=== PATIENT | male | born 1995 | race Hispanic/Latino ===

== ENCOUNTER 2016-05-09 16:30 | Inpatient (IN) | payer MEDICAID ==
[~2016-05-09] VITALS: Ht 160 cm; Wt 59.8 kg
[2016-05-09 16:44] VITALS: BP 127/75; PULSE 130; RESP 24; O2SAT 94
--- NOTE | 2016-05-09 17:59 | ED.REPORT ---
HPI-URI / Cough / Cold Date of Service May 09, 2016 ED Provider: Dr. Vikash Mckeon MD A 20 year old male presents to the ED complaining of a fever that began 2 days ago Patient has also been experiencing a productive cough, general malaise, nasal congestion, diaphoresis, mild sore throat, headache and myalgias. He has been unable to sleep because of his symptoms. Patient did not get the seasonal flu shot. He denies any previous medical conditions. Nursing Notes Stated Complaint: FEVER Chief Complaint: FLU/Cold Symptoms Nursing Notes Reviewed: Yes Allergies: Coded Allergies: No Known Allergies (Unverified , 05/09/16) Miscellaneous Medications ([no home meds]) General Time Seen by MD: 17:58 Chief Complaint Fever Hx Obtained From: Patient Arrived By: Walk-in Symptom Duration: Since onset Associated with: Reports: Body aches, Chills, Cough, Fever, Headache, Myalgia Pertinent Negative: Pt denies other symptoms Context: Immunization Status General: Unknown Recent Healthcare: No recent doctor visit, No recent hospitalization Past Medical History Past Medical History None reported. Past Surgical History Colonoscopy and Ileoscopy With Biopsies Smoking History Unknown if Ever Smoker Social History Other Social History: Good social support, Local resident Ambulatory Status Independent Review of Systems Constitutional: Reports: Chills, Fatigue, Fever, Malaise Ears / Nose / Throat: Reports: Nasal congestion, Sore throat Respiratory: Reports: Prod cough, clear, Denies: Shortness of breath GI: Denies: Nausea, Vomiting Neurologic: Reports: Headache, Denies: Change LOC Complete sys rev & neg: except as marked. Musculoskeletal: Reports: Myalgia Psychiatric: Reports: Insomnia (due to symptoms) Physical Exam Initial Vital Signs Vital Signs (First) Date Time Temp Pulse Resp B/P Pulse Ox O2 Delivery O2 Flow Rate FiO2 05/09/16 16:44 40.4 130 24 127/75 94 Room Air Initial VS: Reviewed Head / Eyes: Atraumatic, Normocephalic, PERRL Extremities: Vascular intact, Neuro intact, No swelling, No tenderness Neurologic: Alert, Oriented, Nonfocal Psychiatric: Mood/affect normal, Behavior normal, Normal thought content General/Constitutional: Awake, Alert ENT: Atraumatic, Airway patent Respiratory / Chest: Atraumatic, Breath sounds NL, Breath sounds = bilat Cardiovascular: Regular rhythm, Heart sounds NL Heart Rate / Rhythm: Positive: Tachycardia Abdomen: Atraumatic, Soft Skin: Atraumatic, Color NL Color / Condition: Positive: Diaphoresis present Interpretation & Diagnostics Lab Results Interpretation Result Diagram: 05/09/16191905/09/160 Test 05/09/16 19:20 White Blood Count 9.1th/mm3 (3.8-10.1) Red Blood Count 5.04mil/mm3 (4.40-5.80) Hemoglobin 15.0g/dL (13.8-17.2) Hematocrit 42.0% (41.0-50.0) Mean Corpuscular Volume 83.3fL (81-100) Mean Corpuscular Hemoglobin 29.8pg (27.0-35.0) Mean Corpuscular Hemoglobin Concent 35.7% (32.0-37.0) Red Cell Distribution Width 12.4% (12.3-15.4) Platelet Count 163bil/L (150-400) Neutrophils (%) (Auto) 79.0% (40-74) Lymphocytes (%) (Auto) 15.8% (14-46) Monocytes (%) (Auto) 3.7% (4-12) Eosinophils (%) (Auto) 0% (0-5) Basophils (%) (Auto) 0.8% (0-3) Potassium Level 3.1mEq/L (3.5-5.2) Chloride Level 82mEq/L (97-108) Carbon Dioxide Level 24mmol/L (18-29) Blood Urea Nitrogen 11mg/dL (6-20) Creatinine 0.73mg/dL (0.76-1.27) Estimat Glomerular Filtration Rate 143mL/min (>59) Glucose Level 116mg/dL (60-99) Lactic Acid Level 0.8mmol/L (0.4-2.0) Calcium Level 7.7mg/dL (8.5-10.1) Total Bilirubin 0.5mg/dL (0.0-1.2) Aspartate Amino Transf (AST/SGOT) 120U/L (0-50) Alanine Aminotransferase (ALT/SGPT) 42U/L (0-44) Alkaline Phosphatase 49U/L (25-150) Total Protein 6.5g/dL (6.4-8.4) Albumin 3.0g/dL (3.4-5.0) Procalcitonin 1.88ng/mL (See Comment) Hold Anguiano Top Tube Received (Received) Lab Results Interpretation: INFLUENZA: Negative X-Ray Chest Interpretation Chest Xray Interpretation: IMPRESSION: Dense right basilar pneumonia Dictated by: Riley Luna M.D. on 05/09/2016 at 20:14 Interpretation / Wet Read by: Interpret - Radiologist Re-Eval/Medical Decision Re-Evaluation/Progress : Time of Eval: 20:57 Patient Status: Condition improved Re-Evaluation/Progress Note: Patient is rechecked. He is informed of his flu results, X-ray results and diagnoses. All of the patient's questions are addressed. He understands and agrees with the treatment plan to admit. Consultation : Referral / Consult Name: Jack Joaquin MD Consulted With: Hospitalist Call Returned at: 21:17 Investigator Internal Revenue: Will see patient, Agrees with eval, Agrees with plan, Accepts admit Counseled Regarding: Diagnosis, Lab results, Need for admission Discharge & Departure Impression: Primary Impression: Pneumonia Pneumonia type: due to unspecified organism Laterality: bilateral Lung location: lower lobe of lung Qualified Code: J18.9 - Pneumonia, unspecified organism Additional Impressions: Hyponatremia Sepsis Sepsis type: sepsis due to unspecified organism Qualified Code: A41.9 - Sepsis, unspecified organism Disposition: ADMITTED TO HOSPITAL Discharge Condition All VS Reviewed: Yes Condition: Stable Referrals: [facility] (PCP) [facility] Scribe Attestation Portions of this note were transcribed by Tarik Duran. I, Dr. Mckeon personally performed the history, physical exam and medical decision-making; I reviewed and confirmed the accuracy of the information in the transcribed note. Signed by: Drew Jackson, 05/09/16 2130. Vikash Mckeon DO May 09, 2016 17:58 TARKI DURAN May 09, 2016 18:59
[2016-05-09] MEDS ORDERED: 0.9% Sodium Chloride 1,000 ML IV SCH ×2 (19:05→21:00)
[2016-05-09 19:26] LABS: EOSINOPHILS % (AUTO) 0 % (0-5); Mean Corpuscular Hemoglobin 29.8 pg (27.0-35.0)
[2016-05-09 19:27] VITALS: BP 111/67; PULSE 101; RESP 19; O2SAT 98
[2016-05-09 19:35] LABS: BASOPHILS % (AUTO) 0.8 % (0-3); MONOCYTES % (AUTO) 3.7 % (4-12); Mean Corpuscular Volume 83.3 fL (81-100); Platelet Count 163 bil/L (150-400)
--- NOTE | 2016-05-09 20:17 | DRSVH ---
PROCEDURE: X-RAY CHEST, TWO VIEWS ([id number]) INDICATIONS: cough, sepsis TECHNIQUE: 2 views of the chest were acquired. COMPARISON: None. FINDINGS: Surgical changes and devices: None. Lungs and pleura: No pleural effusions or pneumothorax. Dense right basilar pneumonia Mediastinum: Mediastinal contours are normal. Heart size is normal. Bones and chest wall: No suspicious bony abnormalities. Soft tissues appear unremarkable. IMPRESSION: Dense right basilar pneumonia Dictated by: Riley Luna M.D. on 05/09/2016 at 20:14 Approved by: Riley Luna M.D. on 05/09/2016 at 20:15
[2016-05-09] MEDS ORDERED: Azithromycin Inj 500 MG in Dextrose 5% w/Vial Mate 250 ML IV ONE (21:00)
[2016-05-09] MEDS ORDERED: cefTRIAXone Inj 2 GM in IV Premix 1 EACH IV ONE (21:00)
[2016-05-09] MEDS ORDERED: cefTRIAXone Inj 2,000 MG in Dextrose 5% Minibag Plus 50 ML IV SCH (21:13)
[2016-05-09] MEDS ORDERED: Polyethylene Glycol (PEG) 17 Gm Powder PO PRN (21:50)
[2016-05-09] MEDS ORDERED: Alum-Mag Hydrox-Simeth 30 mL Suspension PO PRN (21:50)
[2016-05-09 22:02] VITALS: BP 104/58; PULSE 89; RESP 19; O2SAT 95
[2016-05-09 22:22] VITALS: BP 103/66; PULSE 93; RESP 19; O2SAT 96
[2016-05-09] MEDS ORDERED: no home meds (22:27)
[2016-05-09] MEDS ORDERED: Albuterol 2.5 mg/3 mL Inhalation Solution NEB PRN (22:35)
--- NOTE | 2016-05-09 22:39 | PCM.HPMED ---
Subjective Date of Service May 09, 2016 Primary Provider: Admitting Physician: Jack Joaquin MD Primary Care Physician: Chato Attending Physician: Jack Joaquin MD Chief Complaint: Fever, SOB, fatigue History of Present Illness: Patient is a 20 year old male with no past medical history. He presented to [facility] on 05/09/16 with his father and his brother. History taken from the family as patient is quite somnolent. Symptoms reported include fever, cough, sputum production, chest pain, shortness of breath, sore throat, myalgias, laryngitis and fatigue. No one else at home has been sick. The patient has been able to eat and drink some. He has been especially good about drinking tea as it was soothing to his throat. In the ED patient temp 40.4, heart rate 130, respiratory rate 24, blood pressure 127/75, and O2 saturation 94% on room air. Labs remarkable for sodium 120, potassium 3.1, chloride 82. IV fluids started. IV antibiotics given. Patient to be admitted for further management of what appears to be sepsis with community acquired pneumonia. Review of Systems: A comprehensive review of systems was conducted with the patient and found to be negative except as above in the history of present illness. Allergies Coded Allergies: No Known Allergies (Unverified , 05/09/16) Home Medications None reported PMH None reported Surgical History None reported Family History No sick contacts No reported family history of lung disease Social History Hx Alcohol Use: Yes (socially) Hx Substance Use: No Hx Tobacco Use: No Smoking Status: Never Smoker Living Arrangement: with Family Exam Vital Signs Vital Sign - Last Date Time Temp Pulse Resp B/P Pulse Ox O2 Delivery O2 Flow Rate FiO2 05/09/16 22:02 37.4 89 19 104/58 95 Room Air Exam Mild distress, patient somnolent and difficult to arouse Head atraumatic, normocephalic Could not observe oropharynx as patient could not awaken enough to participate in exam; lips dry and cracked No cervical lymphadenopathy noted but difficult to assess as patient laying at strange angle in bed, neck supple, nontender Cardiac tones regular rate and rhythm with no murmur appreciated Lungs with coarse breath sounds noted at the bases (R>L), scattered wheezes heard throughout the lungs crooks No abdominal tenderness, non-distended, normoactive bowel tones, soft Guerra absent Radial pulses normal and equivalent bilaterally, dorsalis pedis pulses normal and equivalent bilaterally No cyanosis, clubbing or edema No ulcerations/open wounds Neuro status could not be assessed as patient could not awaken enough to participate in exam Lab and Diagnostics Result Diagram: 05/09/16191905/09/161919 X-Rays, CTs and MRIs Chest x-ray IMPRESSION: Dense right basilar pneumonia Dictated by: Riley Luna M.D. on 05/09/2016 at 20:14 Assessment & Plan Patient is a 20 year old male with no past medical history. He presented to [facility] on 05/09/16 with his father and his brother. Five days of fever, cough, sputum, SOB, chest pain, myalgias, and fatigue with symptoms worsening. Chest x -ray shows right basilar pneumonia. IV fluids and antibiotics started in ED. Admitted for management of sepsis and pneumonia. 1. Severe sepsis, acute, present on admission. - Criteria met: Fever (40.4), tachycardia (130), tachypnea (24), encephalopathy , pulmonary source. - Procalcitonin ordered and pending. - Will treat the underlying source. Antibiotics as below in #2. - 2L IV NS given in ED. IV LR at 100 ml/hr. - Continue to monitor CBC, lactic acid in AM. 2. Community acquired pneumonia, acute, present on admission. - Rocephin and azithromycin started in ED. Will continue those medications. - Strep pneumo and legionella urine antigens ordered and pending. - Viral PCR ordered and pending. - MRSA swab ordered and pending. - Sputum and blood cultures ordered and pending. - Albuterol neb available Q2 PRN. 3. Hyponatremia, acute, present on admission. - Likely secondary to sepsis and poorer PO intake. - 2L IV NS given. Will re-check lab now. - Continue to monitor BMP. 4. Hypokalemia, acute, present on admission. - Switch IV fluids to LR. - Continue to monitor with BMP. - Tylenol available PRN mild pain, fever. - Antiemetic available PRN. - Antacid available PRN. - Bowel regimen available PRN. Patient admitted under inpatient status with expected length of stay greater than 2 midnights for severity of present symptoms, complexities of treatment plan and risk for adverse events. No PCP GI Prophylaxis: Not indicated VTE Prophylaxis: Sub-Q Enoxaparin, SCDs Resuscitation Status: CPR: Attempt Resuscitation Attending Statement The patient was seen and examined together with Dr. Feldman on 05/09 and I agree with the history, exam and plan as outlined in the note above. Skye Feldman DO May 09, 2016 22:39 Jack Joaquin MD May 09, 2016 23:41
[2016-05-09] MEDS ORDERED: cefTRIAXone Inj 2,000 MG in Dextrose 5% Minibag Plus 50 ML IV ONE (22:46)
--- NOTE | 2016-05-09 22:56 | NUR ---
Admit/ Potassium Pt admitted to [facility] room 3015. Admit questions and med rec completed by admit RN. Pt denies any pain, Vitals stable. PT afebrile at this time. Placed on Tele showing SR 90s per shelter monitor. Viral swab and MRSA swab obtained and sent to lab. awaiting on urine and sputum. Pt k noted to be 3.1. resident paged with findings. no new orders at this time. Care ongoing.
[2016-05-09] MEDS: Lactated Ringer's 1,000 ML IV SCH (23:14)
[2016-05-10] VITALS (10 sets, daily range): BP systolic 103–131; BP diastolic 67–79; PULSE 100–121; RESP 18–24; O2SAT 90–94
[2016-05-10 01:06] LABS: APPEARANCE,URINE CLEAR (CLEAR,HAZY); COLOR,URINE YELLOW (YELLOW); OCCULT BLOOD,URINE MODERATE (NEGATIVE); UROBILINOGEN,URINE NORMAL (NORMAL)
[2016-05-10] MEDS: guaiFENesin DM 200-20 mg/10 mL Syrup PO PRN ×3 (01:41→16:00)
[2016-05-10 06:02] LABS: BASOPHILS % (AUTO) 0.4 % (0-3); EOSINOPHILS % (AUTO) 0.5 % (0-5); MONOCYTES % (AUTO) 3.1 % (4-12); Mean Corpuscular Hemoglobin 30.1 pg (27.0-35.0); Mean Corpuscular Volume 83.7 fL (81-100); Platelet Count 165 bil/L (150-400)
[2016-05-10 06:16] LABS: Magnesium 2.2 mg/dL (1.6-2.6); Phosphorus 2.4 mg/dL (2.5-4.9)
[2016-05-10] MEDS ORDERED: Influenza (Adult) Vaccine 0.5 mL Syringe IM ONE (08:30)
[2016-05-10] MEDS: Ondansetron 2 mg/mL 2 mL Inj IVPUSH PRN ×2 (08:34→16:01)
[2016-05-10] MEDS: Lactated Ringer's 1,000 ML IV SCH ×2 (08:34→20:08)
--- NOTE | 2016-05-10 08:49 | PCM.PNMED ---
Subjective Date of Service May 10, 2016 Subjective Marlo has some nausea this morning and continues to cough. Exam Vital Signs Vital Sign - Last Date Time Temp Pulse Resp B/P Pulse Ox O2 Delivery O2 Flow Rate FiO2 05/10/16 06:13 37.4 105 24 105/68 90 Room Air Intake and Output 05/09/16 05/09/16 05/10/16 Cumulative From/Thru 15:00 23:00 07:00 05/09/16 16:44 - 05/10/16 06:04 Intake Total 1000 ml 949 ml 1949 ml Balance 1000 ml 949 ml 1949 ml IV Total 1000 ml 949 ml 1949 ml Exam General: Resting in bed with oxygen mask in place. Ill appearing though no acute distress. Awake, alert, and oriented. HEENT: No lymphadenopathy. Mucus membranes moist. Sclera anicteric Cardiac: Mildly tachycardic with regular rhythm. No murmur, rubs, or gallops Lungs: Good inspiratory effort. Coughs with deep inspiration. Bibasilar wheezing present. Crackles present in the inferior 1/3 of the right lung field. No conversational dyspnea, tripoding, or gasping. Abdomen: Normoactive bowel tones. Soft, nondistended and nontender. Extremities: No clubbing, cyanosis or edema bilaterally. IVs and Medications Medications Reviewed: Medications were reviewed in detail Lab and Diagnostics Result Diagram: 05/10/16 0540 05/10/16 0540 Microbiology Negative strep pneumoniae antigen Positive for Adenovirus on [employer] of nasopharyngeal swab X-Rays, CTs and MRIs Chest x-ray IMPRESSION: Dense right basilar pneumonia Dictated by: Riley Luna M.D. on 05/09/2016 at 20:14 Assessment & Plan Marlo is a 20yo previously healthy male who presented with 5 days of worsening fever, productive cough, dyspnea, chest pain, myalgias, and fatigue. Chest x- ray indicative of a right basilar pneumonia. He has been admitted for further evaluation and treatment of a right lower lobe pneumonia. 1. Sepsis due to pneumonias, acute, present on admission, improved - Initially severe sepsis - Febrile with tachycardia and tachypnea at arrival to the ER, remains tachycardic - Will treat the underlying source. Antibiotics as below in #2. - 2L IV NS given in ED. IV LR at 100 ml/hr. - Continue to monitor CBC, lactic acid in AM. 2. Community acquired pneumonia, right lower lobe, acute, present on admission. - Suspect this may be a combination of both viral infection and secondary bacterial pneumonia - Viral PCR positive for adenovirus - Procalcitonin of 1.88 is suggestive of bacterial pneumonia - Ceftriaxone and azithromycin - MRSA swab pending. - Sputum and blood cultures ordered and pending. - Albuterol neb available Q2 PRN. - Continue Infectious Disease now 3. Hyponatremia, acute, present on admission, improved. - Likely secondary to sepsis, respiratory infection and inadequate oral intake. - 2L IV NS given - Monitor 4. Hypokalemia, acute, present on admission. - Received LR and this improved - Continue to monitor with BMP. 5. Acute Respiratory Failure with Hypoxemia - Continue supplemental O2 to keep SpO2 greater than 92% - Breathing treatments PRN - Tylenol available PRN mild pain or fever. - Ondansetron PRN nausea. - Bowel regimen available PRN. GI Prophylaxis: Not indicated VTE Prophylaxis: Sub-Q Enoxaparin, SCDs Resuscitation Status: CPR: Attempt Resuscitation Attending Statement Patient was seen and evaluated with Dr. Vicente on 05/10/2016. I agree with the findings, assessment and plan of care as noted above. Chari Vicente DO May 10, 2016 08:49 Félix Cruz MD May 10, 2016 13:10
--- NOTE | 2016-05-10 13:44 | NUR ---
Social Work: Screening Data: Pt is a 20 y/o male admitted for sepsis, pneumonia. Pt's PCP is not listed. Pt's is self pay insurance. TICKET DISPATCHER called [facility] and left a message to make sure they will see pt during hospitalization. TICKET DISPATCHER met with pt with service electrician, pt states he does not need an service electrician. TICKET DISPATCHER offered a [facility] care application, pt accepted. No further d/c planning needs identified at this time. TICKET DISPATCHER will continue to follow if needs arise. Assessment: Pt who is independent at baseline. Plan: Pt will d/c home via POV when medically stable. [facility] application given. No further d/c planning needs identified at this time. TICKET DISPATCHER will continue to follow if needs arise. BESSIE Marcelino
[2016-05-10] MEDS ORDERED: 0.9% Sodium Chloride 250 ML ONE (15:42)
--- NOTE | 2016-05-10 18:31 | NUR ---
Cough/Nausea Pt reports he is overall feeling better this afternoon. His cough seems to have abated somewhat over the course of the shift. Cardiac: Pt denies chest pain. SR 100-120s. Resp: Pt denies SOB, SPO2 mid 90s on RA. Pt is having a hard time producing sputum sample. Pt reeducated on sputum sample, and he voices understanding. PRN Tessalon and guaifenesin given. GI/: Pt reported mild nausea this AM. 4mg Ondansetron given, nausea resolved. Nausea again in the afternoon, 4mg ondansetron again effective. Neuro: A&Ox2, MANNING, pt reports mild dizziness this afternoon.
--- NOTE | 2016-05-10 19:08 | CONS ---
[address] [address] CONSULTATION REPORT PATIENT: RIMA GILLETTE : 1995 MR#: [id number] ADMIT: 05/09/2016 JOB ID: [id number] DATE OF SERVICE: 05/10/2016 INFECTIOUS DISEASE CONSULTATION: REASON FOR CONSULTATION: Adenoviral pneumonia followed by right lower lobe bacterial pneumonia. HISTORY OF PRESENT ILLNESS: The patient is a 20-year-old gentleman with essentially no past medical history who was in his usual state of health until about five days ago when he developed an upper respiratory type infection with cough and malaise. He thought he was actually starting to get better for a bit and then developed dramatically worse symptoms with shortness of breath, fever, chills, worsening cough, substernal chest pain, sore throat, myalgias, arthralgias, and in fact became somewhat sleepy. The patient was brought to the emergency department last night by his family and admitted to the hospital. In the ED he was found to have an extraordinary temperature of 40.4 and was a bit somnolent. It was noted last night in the ED that the patient could not be roused enough actually to accurately answer questions which was a dramatic change from his baseline mental status. Today the patient is speaking slowly, but is able to accurately answer questions, and reports he is starting to feel a little bit better. He reports that he has some headache, a mild sore throat, cough, pain underneath the sternal area, and just feels very very weak. He also has some myalgias. He denies stiff neck and denies confusion today. PAST MEDICAL HISTORY: Negative. SOCIAL HISTORY: The patient lives at home with his parents. The patient occasionally drinks beer but does not smoke cigarettes and does not use illicit drugs. He is a graduate of [employer]. FAMILY HISTORY: Negative for tuberculosis in his parents, grandparents, and siblings. REVIEW OF SYSTEMS: The patient has some headache. He denies blurry vision. He has had some rhinorrhea. He has also had some very mild sore throat. No stiff neck or swollen lymph nodes have been noted. He does have a cough which is productive of some moderate amount of sputum. He does not have pleuritic chest pain to either the right or the left, but does have some pleuritic type chest pain underneath the sternum. He has no nausea, vomiting, or diarrhea. No dysuria or urinary symptoms. No particular pain in the joints, though his muscles and joints do hurt a bit diffusely. He retains full neurologic function, can move his extremities, and is not reporting any confusion today.All others negative LABORATORIES: Include white count 7300, platelet count 165,000. Creatinine 0.5. LFTs notable for bilirubin 0.3, AST 94, ALT 36, albumin 2.6. Procalcitonin 1.88. Urinalysis with 6-10 white cells interestingly, no red cells. Legionella urine antigen negative. Pneumococcal urine antigen negative. HIV and hep C are pending. Micro studies include a respiratory viral PCR positive for adenovirus. A MRSA screen is pending. Blood cultures are negative. We reviewed the chest x-ray. It shows a dense right-sided infiltrate. IMPRESSION: This patient seems to follow the classic course of an adenoviral pneumonia. Adenovirus often presents with some sore throat and cough and shortness of breath, and gradually improves over several days. This patient seemed to be on that trajectory, and then got worse with a superimposed bacterial pneumonia on the right side. We know this is bacterial because of his elevated procalcitonin, as well as a dense infiltrate at the right base which is not typical of adenovirus; so, our diagnosis is adenovirus upper respiratory infection with resultant right-sided bacterial pneumonia. The likely causes here would be pneumococcus, H. flu, mycoplasma chlamydia, and standard issue bacterial pneumonia pathogens and in young adults. 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 RECOMMENDATIONS: 1. I agree with continuing ceftriaxone and azithromycin. 2. The azithromycin can be switched to oral once the patient is eating a regular diet. 3. We await his blood cultures and other studies. 4. Will probably transition to oral therapy within the next day or two and get the patient out. Thank you very much for this consult. IRIS
--- NOTE | 2016-05-10 20:46 | NUR ---
temp: pt's 39.4. pt denies chills, however goose bumps on legs. covers removed, with only sheets left on. fan on in room. HR in 120's. will re-check temp. Addendum: 05/10/16 at 2154 by TERE CARDENAS temp reassessment at 37.4, HR down to 102, patient is lying comfortably in bed watching tv.
[2016-05-10] MEDS: Azithromycin Inj 500 MG in Dextrose 5% w/Vial Mate 250 ML IV SCH (21:47)
[2016-05-11] VITALS (9 sets, daily range): BP systolic 97–120; BP diastolic 60–76; PULSE 75–116; RESP 16–24; O2SAT 94–95
[2016-05-11] MEDS: cefTRIAXone Inj 2,000 MG in Dextrose 5% Minibag Plus 50 ML IV SCH ×2 (00:23→21:09)
[2016-05-11 06:49] LABS: BASOPHILS % (AUTO) 0.6 % (0-3); EOSINOPHILS % (AUTO) 0.1 % (0-5); MONOCYTES % (AUTO) 3.9 % (4-12); Mean Corpuscular Hemoglobin 29.9 pg (27.0-35.0); Mean Corpuscular Volume 85.7 fL (81-100); NEUTROPHILS % (AUTO) 71.6 % (40-74); Platelet Count 187 bil/L (150-400)
[2016-05-11] MEDS: 0.9% Sodium Chloride 1,000 ML IV SCH ×2 (11:07→17:49)
--- NOTE | 2016-05-11 11:20 | NUR ---
Hypotension/Temp Pt's BP this am was 97/60, HR: 75, Temp: 37.3. Anthony aware during rounds, ordered NS to be given at a rate of 150, DC LR, Administer Tylenol PRN. Rechecked BP at 1130: 107/70, HR: 85, Temp: 37.0
--- NOTE | 2016-05-11 11:50 | PCM.PNMED ---
Subjective Date of Service May 11, 2016 Subjective Marlo reports that he is feeling very tired. He continues to have a productive cough. Overnight, he was febrile to 39.1 at approximately 1am. Exam Vital Signs Vital Sign - Last Date Time Temp Pulse Resp B/P Pulse Ox O2 Delivery O2 Flow Rate FiO2 05/11/16 04:53 86 05/11/16 04:36 36.6 20 100/64 94 Nasal Cannula 1.00 Intake and Output 05/10/16 05/10/16 05/11/16 Cumulative From/Thru 15:00 23:00 07:00 05/09/16 16:44 - 05/11/16 04:27 Intake Total 0 ml 1319 ml 817 ml 4085 ml Output Total 200 ml 200 ml Balance -200 ml 1319 ml 817 ml 3885 ml Intake Oral 0 ml 200 ml 200 ml IV Total 1119 ml 817 ml 3885 ml Output Urine Total 200 ml 200 ml # Voids 1 2 3 # Bowel Movements 1 1 Exam General: Resting in bed without any blankets upon my entering the room. No acute distress. Awake, alert, and oriented though his verbal responses are delayed. HEENT: No lymphadenopathy. Mucus membranes moist. Sclera anicteric Cardiac: Mildly tachycardic with regular rhythm. No murmur, rubs, or gallops Lungs: Good inspiratory effort. Coughs with deep inspiration. Crackles present in the inferior 1/3 of the right lung field. No wheezes or rhonchi. No conversational dyspnea, tripoding, or gasping. Abdomen: Normoactive bowel tones. Soft, nondistended and nontender. Extremities: No clubbing, cyanosis or edema bilaterally. IVs and Medications Medications Reviewed: Medications were reviewed in detail Lab and Diagnostics Procalcitonin 3.08 HIV negative Result Diagram: 05/11/16 0550 05/11/16 0550 Microbiology Negative strep pneumoniae and legionella antigens Positive for Adenovirus on Biofire of nasopharyngeal swab Negative MRSA screen X-Rays, CTs and MRIs Chest x-ray IMPRESSION: Dense right basilar pneumonia Dictated by: Riley Luna M.D. on 05/09/2016 at 20:14 Assessment & Plan Marlo is a 20yo previously healthy male who presented with 5 days of worsening fever, productive cough, dyspnea, chest pain, myalgias, and fatigue. Chest x- ray indicative of a right basilar pneumonia. He has been admitted for further evaluation and treatment of a right lower lobe pneumonia. 1. Community acquired pneumonia, right lower lobe, acute, present on admission. - Suspect a combination of both viral infection and secondary bacterial pneumonia - Viral PCR positive for adenovirus - Procalcitonin of 3.08 is suggestive of bacterial pneumonia, not that this is a significant increase from 1.88 on the night of admission - Ceftriaxone and azithromycin - Sputum and blood cultures are pending. - Albuterol neb available q2h PRN. - Dr Mancia (Infectious Disease specialist) has consulted with this case - Repeat procalcitonin level tomorrow 2. Sepsis due to pneumonia, acute, present on admission, improved - Initially severe sepsis - Febrile with tachycardia and tachypnea at arrival to the ER, remains febrile without acetaminophen use - Treat the pneumonia. Antibiotics as above in #1. - Continue NS IV at 150 mL/hr. - Continue to monitor CBC 3. Hyponatremia, acute, present on admission, stable. - Improving - Likely secondary to sepsis, respiratory infection and inadequate oral intake. - Monitor 4. Acute Respiratory Failure with Hypoxemia, resolved - Supplemental oxygen to keep SpO2 > 92% - Breathing treatments PRN - Tylenol available PRN mild pain or fever. - Ondansetron PRN nausea. - Bowel regimen available PRN. VTE Prophylaxis: Sub-Q Enoxaparin, SCDs Resuscitation Status: CPR: Attempt Resuscitation Attending Statement The patient was seen and examined together with Dr. Vicente on 05/11/2016 and I agree with the history, exam and plan as outlined in the note above. Chari Vicente DO May 11, 2016 09:58 Félix Cruz MD May 12, 2016 13:01
--- NOTE | 2016-05-11 17:34 | PROG NOTE ---
[address] [address] PROGRESS NOTE PATIENT: RIMA GILLETTE : 1995 MR#: [id number] ADMIT: 05/09/2016 JOB ID: [id number] DATE: 05/11/2016 INFECTIOUS DISEASE FOLLOWUP NOTE: REASON FOR FOLLOW UP: Adenovirus complicated by bacterial pneumonia superinfection. INTERVAL HISTORY: Today at least the patient has had no fevers or chills, though he did have high fevers and chills yesterday. He reports continued productive cough. He is not especially short of breath, nor does he have pleuritic chest pain. No nausea or vomiting. PHYSICAL EXAMINATION: Reveals a gentleman who has been afebrile since midnight, but at midnight he spiked to 39.1 axillary. His pulse is currently 85, respiratory rate 16, blood pressure 107/70, saturating well on room air. He appears more comfortable than yesterday, but still perhaps a little lethargic. Examination of the eyes shows no conjunctivitis. He does not have any preauricular lymph nodes which might be consistent with certain serotypes of adenovirus. His neck is without adenopathy. His lungs are notable for decreased breath sounds; in fact, almost absent breath sounds at the right base. Left lung sounds pretty good. Abdomen soft and nontender. No skin rash. He is alert and oriented, though as mentioned maybe a tad lethargic. His white blood count is 7800. The diff on that white count has now normalized. His sodium, interestingly, is 129 and it was as low as 120 on admission, which is quite surprising in a young man with a viral/bacterial pneumonia. His creatinine is 0.69. LFTs notable for an AST that was 94 yesterday and is 89 today. His albumin is low at 2.5. Procalcitonin 3. Urinalysis without significant pyuria. HIV is back and negative. Urine Legionella is negative and the pneumococcal urine antigen negative. The respiratory PCR positive for adenovirus. MRSA screen negative. Blood cultures negative. IMAGING: No followup imaging has been done. IMPRESSION: This is a previously healthy gentleman who is human immunodeficiency virus negative who developed an adenoviral respiratory tract infection. He reported that his illness was biphasic in that he seemed to be getting better and then got much worse with increasing fevers, chills, lethargy, and perhaps even confusion prior to admission. This was all associated with an impressive hyponatremia. The patient is now improving steadily on azithromycin and ceftriaxone. The presumptive sequence of events here is that he had an adenovirus pneumonia, which is very common in young adults, and as he started to improve he developed a bacterial superinfection. The microbiologic etiology of the bacterial superinfecting organism is not known but it has raised his procalcitonin. The patient now seems to be improving. RECOMMENDATIONS: 1. I would continue with azithromycin and ceftriaxone at least another day or two until the patient is much more functional, has a better sodium, and has been afebrile for 24-48 hours. 2. Once the patient has met the above-mentioned goals I think he could be discharged on Levo 750 for five days.
[2016-05-12] VITALS (12 sets, daily range): BP systolic 107–129; BP diastolic 67–83; PULSE 68–92; RESP 16–20; O2SAT 89–97
[2016-05-12] MEDS: Azithromycin Inj 500 MG in Dextrose 5% w/Vial Mate 250 ML IV SCH ×2 (00:12→22:11)
[2016-05-12] MEDS: 0.9% Sodium Chloride 1,000 ML IV SCH ×4 (00:52→16:01)
[2016-05-12 06:14] LABS: BASOPHILS % (AUTO) 0.9 % (0-3); EOSINOPHILS % (AUTO) 0.7 % (0-5); MONOCYTES % (AUTO) 8.4 % (4-12); Mean Corpuscular Hemoglobin 30.2 pg (27.0-35.0); Mean Corpuscular Volume 85.8 fL (81-100); NEUTROPHILS % (AUTO) 54.4 % (40-74); Platelet Count 239 bil/L (150-400)
--- NOTE | 2016-05-12 15:41 | NUR ---
UPPER QUADRANT U/S P- Patient to have abdominal U/S but needs to be NPO for 8hs and has eaten lunch. I- Have made patient NPO at midnight, U/S scheduled for 05/13 in am. E- MD and patient made aware. LABS- Na 131, ALT 99, AST 181 Liver enzymes have doupled in last 24 hrs. NEURO- A/O CVS-SR 70'S PLUM-RA CRX (+) GI-General, NPO midnight - urinal SKIN-No issues PAIN- denies IV- NS 150 PLAN- See above note. Continue NS for Na.
--- NOTE | 2016-05-12 16:40 | PCM.PNMED ---
Subjective Date of Service May 12, 2016 Subjective Marlo had a fever overnight with a temperature of 39.5 at approximately 1am. He denies any abdominal pain or nausea. He reports rare alcohol intake with his last consumption of alcohol being 3 weeks ago. Exam Vital Signs Vital Sign - Last Date Time Temp Pulse Resp B/P Pulse Ox O2 Delivery O2 Flow Rate FiO2 05/12/16 13:33 36.4 68 16 116/72 90 Room Air 05/11/16 04:36 1.00 Intake and Output 05/11/16 05/11/16 05/12/16 Cumulative From/Thru 15:00 23:00 07:00 05/09/16 16:44 - 05/12/16 05:59 Intake Total 150 ml 1594 ml 220 ml 6049 ml Output Total 200 ml Balance 150 ml 1594 ml 220 ml 5849 ml Intake Oral 150 ml 220 ml 570 ml IV Total 1594 ml 5479 ml Output Urine Total 200 ml # Voids 2 2 4 11 # Bowel Movements 1 1 2 5 Exam General: Resting in bed without any blankets upon my entering the room. No acute distress. Awake, alert, and oriented. HEENT: No lymphadenopathy. Mucus membranes moist. Sclera anicteric Cardiac: RRR. No murmur, rubs, or gallops Lungs: Good inspiratory effort. Subtle crackles present in the inferior 1/3 of the right lung field. No wheezes or rhonchi. No conversational dyspnea, tripoding, or gasping. Abdomen: Normoactive bowel tones. Soft, nondistended and nontender. Extremities: No clubbing, cyanosis or edema bilaterally. Lab and Diagnostics ALT 99 [id number] Alk phos 65 Bilirubin 0.2 Result Diagram: 05/12/16 0547 05/12/16 0547 Microbiology Negative strep pneumoniae and legionella antigens Positive for Adenovirus on Biofire of nasopharyngeal swab Negative MRSA screen X-Rays, CTs and MRIs Chest x-ray IMPRESSION: Dense right basilar pneumonia Dictated by: Riley Luna M.D. on 05/09/2016 at 20:14 Assessment & Plan Marlo is a 20yo previously healthy male who presented with 5 days of worsening fever, productive cough, dyspnea, chest pain, myalgias, and fatigue. Chest x- ray indicative of a right basilar pneumonia. He has been admitted for further evaluation and treatment of a right lower lobe pneumonia. 1. Community acquired pneumonia, right lower lobe, acute, present on admission. - Suspect a combination of both viral infection and secondary bacterial pneumonia - Viral PCR positive for adenovirus - Procalcitonin of 3.08 yesterday and 1.67 today are suggestive of improving bacterial pneumonia - Ceftriaxone and azithromycin - Sputum and blood cultures are pending. - Albuterol neb available q2h PRN. - Dr Mancia (Infectious Disease specialist) has consulted with this case - Repeat procalcitonin level again tomorrow 2. Sepsis due to pneumonia, acute, present on admission, improved - Initially severe sepsis - Febrile with tachycardia and tachypnea at arrival to the ER, remains febrile without acetaminophen use - Treat the pneumonia. Antibiotics as above in #1. - Continue NS IV at 150 mL/hr. - Continue to monitor CBC 3. Transaminitis, worsening - Unclear etiology - Right upper quadrant US to evaluate further, NPO for the US - Monitor on CMP tomorrow morning 4. Hyponatremia, acute, present on admission - Improving gradually - Likely secondary to sepsis, respiratory infection and inadequate oral intake. - Monitor 5. Acute Respiratory Failure with Hypoxemia, resolved - Supplemental oxygen to keep SpO2 > 92% - Breathing treatments PRN - Tylenol available PRN mild pain or fever. - Ondansetron PRN nausea. - Bowel regimen available PRN. GI Prophylaxis: Not indicated VTE Prophylaxis: Sub-Q Enoxaparin, SCDs Resuscitation Status: CPR: Attempt Resuscitation Attending Statement The patient was seen and examined together with Dr. Vicente on 05/13/2016 and I agree with the history, exam and plan as outlined in the note above. Chari Vicente DO May 12, 2016 14:09 Félix Cruz MD May 13, 2016 10:54
--- NOTE | 2016-05-12 21:01 | NUR ---
d/c'd continuous pulse ox Patient's O2 sats have been stable in the mid to upper 9os. Continuous pulse ox removed and d/c'd, to aid with ambulation in room. O2 sats remain stable, patient up to bathroom
[2016-05-12] MEDS: cefTRIAXone Inj 2,000 MG in Dextrose 5% Minibag Plus 50 ML IV SCH (21:02)
[2016-05-13] VITALS (9 sets, daily range): BP systolic 114–132; BP diastolic 74–85; PULSE 58–84; RESP 16–18; O2SAT 94–99
[2016-05-13] MEDS: 0.9% Sodium Chloride 1,000 ML IV SCH ×4 (00:38→22:27)
[2016-05-13 06:29] LABS: BASOPHILS % (AUTO) 2.1 % (0-3); EOSINOPHILS % (AUTO) 1.7 % (0-5); MONOCYTES % (AUTO) 8.8 % (4-12); Mean Corpuscular Hemoglobin 29.8 pg (27.0-35.0); Mean Corpuscular Volume 85.4 fL (81-100); NEUTROPHILS % (AUTO) 36.7 % (40-74); Platelet Count 328 bil/L (150-400)
--- NOTE | 2016-05-13 08:32 | DRSVH ---
PROCEDURE: US ABDOMEN ([id number]) INDICATIONS: transaminitis TECHNIQUE: Real-time scanning was performed of the abdominal and retroperitoneal organs, with image documentatio n. COMPARISON: None. FINDINGS: Liver: Liver is normal in size and homogeneous in echotexture. Gallbladder: Is within normal limits Biliary ducts: Intrahepatic bile ducts are non-dilated. Extrahepatic bile duct caliber measures 3.9 mm. Normal is 6-7 mm or less in diameter, or 10 mm or less post-cholecystectomy. Pancreas: Visualized portions of the pancreas are sonographically normal. Spleen: Spleen is normal in size and homogeneous in echotexture. Kidneys: Kidneys are normal in size and echotexture. Right kidney measures 10.7 cm long; left kidne y measures 11.1 cm long. No hydronephrosis or nephrolithiasis. No solid masses. Aorta: Visualized aorta is normal in caliber at less than 3 cm. Iliacs: Not well-seen. IVC: Intrahepatic inferior vena cava is patent. Miscellaneous: No free abdominal fluid. Small bilateral pleural effusions. IMPRESSION: 1. No acute process. 2. Small bilateral pleural effusions. Dictated by: Max Montanez M.D. on 05/13/2016 at 8:30 Approved by: Max Montanez M.D. on 05/13/2016 at 8:31
--- NOTE | 2016-05-13 11:02 | PCM.PNMED ---
Subjective Date of Service May 13, 2016 Subjective Pt doing well today. He has no complaints at this time. Pt denies any fever overnight. He also denies any shortness of breath, chest pain, chills, nausea, vomiting, and abdominal pain. Exam Vital Signs Vital Sign - Last Date Time Temp Pulse Resp B/P Pulse Ox O2 Delivery O2 Flow Rate FiO2 05/13/16 10:07 66 05/13/16 09:24 36.9 18 117/80 97 Room Air 05/11/16 04:36 1.00 Intake and Output 05/12/16 05/12/16 05/13/16 Cumulative From/Thru 15:00 23:00 07:00 05/09/16 16:44 - 05/13/16 04:49 Intake Total 2078 ml 2486 ml 2205 ml 45592 ml Output Total 700 ml 900 ml Balance 2078 ml 2486 ml 1505 ml 88552 ml Intake Oral 1036 ml 650 ml 2256 ml IV Total 2078 ml 1450 ml 1555 ml 50745 ml Output Urine Total 700 ml 900 ml # Voids 4 2 17 # Bowel Movements 5 Exam GENERAL: NAD, Pt laying in bed comfortably HEENT: AT/NC, PERRLA, EOMI, Mucus Membranes are moist CARDIAC: RRR; No M/R/G PULM: Coarse breath sounds bilaterally but normal respiratory effort without any wheezing ABD: Soft, Nontender, Nondistended, Positive bowel sounds in all quadrants, No Hepatosplenomegaly appreciated EXT: No C/C/E; No calf tenderness bilaterally SKIN: Warm, Dry, [place], and Intact NEURO: Alert and oriented x3; Following all commands PSYCH: Normal mood and affect IVs and Medications Medications Reviewed: Medications were reviewed in detail Lab and Diagnostics Result Diagram: 05/13/16 0600 05/13/16 0600 Microbiology Negative strep pneumoniae and legionella antigens Positive for Adenovirus on Biofire of nasopharyngeal swab Negative MRSA screen X-Rays, CTs and MRIs US ABDOMEN INDICATIONS: transaminitis TECHNIQUE: Real-time scanning was performed of the abdominal and retroperitoneal organs, with image documentation. COMPARISON: None. FINDINGS: Liver: Liver is normal in size and homogeneous in echotexture. Gallbladder: Is within normal limits Biliary ducts: Intrahepatic bile ducts are non-dilated. Extrahepatic bile duct caliber measures 3.9 mm. Normal is 6-7 mm or less in diameter, or 10 mm or less post-cholecystectomy. Pancreas: Visualized portions of the pancreas are sonographically normal. Spleen: Spleen is normal in size and homogeneous in echotexture. Kidneys: Kidneys are normal in size and echotexture. Right kidney measures 10.7 cm long; left kidney measures 11.1 cm long. No hydronephrosis or nephrolithiasis. No solid masses. Aorta: Visualized aorta is normal in caliber at less than 3 cm. Iliacs: Not well-seen. IVC: Intrahepatic inferior vena cava is patent. Miscellaneous: No free abdominal fluid. Small bilateral pleural effusions. IMPRESSION: 1. No acute process. 2. Small bilateral pleural effusions. Assessment & Plan Marlo is a 20yo previously healthy male who presented with 5 days of worsening fever, productive cough, dyspnea, chest pain, myalgias, and fatigue. Chest x- ray indicative of a right basilar pneumonia. He has been admitted for further evaluation and treatment of a right lower lobe pneumonia. 1. Community Acquired Pneumonia, RLL - Present on admission - Suspect a combination of both viral infection and secondary bacterial pneumonia - Viral PCR positive for adenovirus - Procalcitonin of 3.08 yesterday and 1.67 today are suggestive of improving bacterial pneumonia - Stop IV Rocephin now as I feel this may be contributing to pts elevated liver function tests - Start PO Levaquin 750 mg PO daily now - Sputum and blood cultures are negative thus far - Continue breathing treatments PRN - Dr Mancia (Infectious Disease specialist) has consulted with this case 2. Sepsis due to pneumonia, acute, present on admission - Resolved - Initially severe sepsis - Febrile with tachycardia and tachypnea at arrival to the ER, remains febrile without acetaminophen use - Continue to treat pts pneumonia. Antibiotics as above in #1. - Stop IV fluids now - Continue to monitor CBC 3. Transaminitis, worsening - Unclear etiology, but I suspect it may be the Ceftriaxone and this has been stopped - RUQ US is negative for an acute etiology - Gastroenterology has been consulted - Recheck CMP in AM 4. Hyponatremia, acute, present on admission - Resolved - Likely secondary to sepsis, respiratory infection and inadequate oral intake. - Monitor 5. Acute Respiratory Failure with Hypoxemia - Resolved - Secondary to Pneumonia - Supplemental oxygen to keep SpO2 > 92% - Breathing treatments PRN GI Prophylaxis: Not indicated VTE Prophylaxis: Sub-Q Enoxaparin, SCDs Resuscitation Status: CPR: Attempt Resuscitation Félix Cruz MD May 13, 2016 11:02
[2016-05-13] MEDS: levoFLOXacin 750 mg Tablet PO SCH (11:49)
--- NOTE | 2016-05-13 11:53 | NUR ---
Social Work-continued d/c planning: Data:EMR reviewed. Pt is on day 4 of hospitalization for sepsis per H&P. Pt is several day out from discharge per MD, Pt has no insurance or PCP, shonda application and [facility] have been notified. Pt has been up independent in his room. No discharge needs identified. Pt's family to provide transport home at discharge. SW will continue to follow if needs arise. Assessment:pt who is independent at baseline. Plan:Pt to discharge home when medically stable via POV. Shonda care application provided and [facility] have been notified of pt. No discharge needs identified.SW will continue to follow if needs arise. BESSIE Singh
--- NOTE | 2016-05-13 18:03 | NUR ---
Labs New order for urine tox screen. Urine sample sent to lab.
--- NOTE | 2016-05-13 18:17 | CONS ---
[address] [address] CONSULTATION REPORT PATIENT: RIMA GILLETTE : 1995 MR#: [id number] ADMIT: 05/09/2016 JOB ID: [id number] DATE OF SERVICE: 05/13/2016 It was a pleasure seeing this patient at the GI service for abnormal liver function tests. The patient is a 20-year-old gentleman with no significant past medical history who occasionally drinks beer, does not use cigarettes or illicit drugs who came in with about a week's worth of cough, malaise, shortness of breath, fever, with temp of 40.4 to the emergency department. At the time, the patient was noted to have right lower lobe pneumonia and the patient was given ceftriaxone and azithromycin. On this, the patient improved. He has not been known to have any issues with the liver such as hepatitis, cirrhosis, alcohol intake, etc. However, on admission, his AST was noted to be at 120, albumin at 3.0 with normal ALT, total bilirubin and alkaline phosphatase. However, on the , his ALT increased to 99 and to 222 today. His AST jumped up to 354. During this time, bilirubin and alkaline phosphatase remained stable and albumin today was 2.7. Because of these concerns, today ceftriaxone and azithromycin were stopped and he was placed on Levaquin by the primary care physician service. During this time, he was not having any issues with nausea, vomiting, abdominal pain, jaundice, malaise. In fact, his malaise has gotten better since admission. Ultrasound was apparently done which showed small bilateral pleural effusion only and no other significant abnormalities. Common bile duct was 3.9 mm, extrahepatic ducts were not dilated, pancreas appeared normal, gallbladder within normal limits and liver appeared to be normal as well. PAST MEDICAL HISTORY: None. PAST SURGICAL HISTORY: None. SOCIAL HISTORY: Lives at home with his parents. Occasionally drinks beer but does not use cigarettes or drugs. FAMILY HISTORY: Negative for liver disease. Vitals are reviewed Head and neck no icterus no lymphadenopathy Lungs clear Cardiovascular regular rate and rhythm, normal S1-S2 Abdomen soft nontender nondistended with normoactive bowel sounds no hepatosplenomegaly Skin shows no jaundice No palmar erythema no Juan J's nails no Dupuytren's contracture Video pulses bilaterally and intact. LABORATORY AND IMAGING STUDIES: As above. IMPRESSION and plan: This is a gentleman who has baseline elevation of AST which is pretty nonspecific but his albumin was low to start off with. This raises the possibility that he may have had issues of synthetic function. It also raises the possibility that there could be some element of alcohol, but he absolutely denies using alcohol. This could drug-related which may have worsened an underlying liver issue that he has. Currently, there is no evidence of decompensation, but the transaminase elevation is concerning, and I agree for now switching antibiotics may be the first reasonable management. I would at this point avoid other medications unless it is absolute necessary. Will follow his hemoglobin and I wrote for a urine drug tox. Acute hepatitis serology is pending, but this appears to be more of a transaminase elevation, i.e. hepatitis rather than cholestatic picture. Will follow. ROCIOD
--- NOTE | 2016-05-13 18:45 | NUR ---
Tele/GI bleed Tele called at about 1840 stating pt HR up in the 130s and has been trending up since 1730. At about 1845 went to check on pt for yamileth care due to pt being incontinent of urine. Noted large amount of bradnon red blood in her brief. made aware. New order put in by . While doing yamileth care, noted pt had active bleeding. Cleaned as much as I could, than gave bedside report to next oncoming RN and restaurant shift supervisor charge nurse made aware. Addendum: 05/13/16 at 2002 by DOMINGUEZ KINGSTON RN wrong pt
[2016-05-14] MEDS: 0.9% Sodium Chloride 1,000 ML IV SCH ×4 (05:45→19:29)
[2016-05-14 06:10] VITALS: BP 129/85; PULSE 78; RESP 18; O2SAT 96
[2016-05-14 07:07] LABS: Hepatitis A Antibody IgM Negative (Negative); Hepatitis B Core Antibody IgM Negative (Negative)
--- NOTE | 2016-05-14 07:17 | NUR ---
Restful Night Pt had a restful night between care interventions, no c/o pain or SOB. Vitals stable.
--- NOTE | 2016-05-14 08:24 | PCM.PNMED ---
Subjective Date of Service May 14, 2016 Subjective Marlo reports that he is feeling better. He states that he has had yellow sputum over the past 24 hours and feels better after coughing the sputum out. Denies any nausea, change in appetite, or abdominal pain. Exam Vital Signs Vital Sign - Last Date Time Temp Pulse Resp B/P Pulse Ox O2 Delivery O2 Flow Rate FiO2 05/14/16 06:10 36.7 78 18 129/85 96 Room Air 05/11/16 04:36 1.00 Intake and Output 05/13/16 05/13/16 05/14/16 Cumulative From/Thru 15:00 23:00 07:00 05/09/16 16:44 - 05/14/16 04:30 Intake Total 925 ml 46676 ml Output Total 900 ml Balance 925 ml 17779 ml Intake Oral 925 ml 3181 ml IV Total 83040 ml Output Urine Total 900 ml # Voids 5 22 # Bowel Movements 1 6 Exam General: Resting comfortably in bed upon my entering the room. No acute distress. Awake, alert, and oriented. HEENT: Mucus membranes moist. Sclera anicteric Cardiac: Slightly tachycardic at 100bpm with regular rhythm. No murmur, rubs, or gallops Lungs: Good inspiratory effort. Right basilar crackles present. No wheezes or rhonchi. No conversational dyspnea, tripoding, or gasping. Abdomen: Normoactive bowel tones. Soft, nondistended and nontender. No discernible hepatomegaly. Extremities: No clubbing, cyanosis or edema bilaterally. Lab and Diagnostics Result Diagram: 05/13/16 0600 05/14/16 0555 Microbiology Negative strep pneumoniae and legionella antigens Positive for Adenovirus on Biofire of nasopharyngeal swab Negative MRSA screen Assessment & Plan Marlo is a 20yo previously healthy male who presented with 5 days of worsening fever, productive cough, dyspnea, chest pain, myalgias, and fatigue. Chest x- ray indicative of a right basilar pneumonia. He has been admitted for evaluation and treatment of a right lower lobe pneumonia. 1. Community Acquired Pneumonia, RLL - Present on admission - Suspect a combination of both viral infection and secondary bacterial pneumonia - Viral PCR positive for adenovirus - Procalcitonin of 3.08 on 05/11/16 and 1.67 on 05/12/16re suggestive of improving bacterial pneumonia - Ceftriaxone has been discontinued due to contributing to transaminitis - Levofloxacin 750 mg PO daily - Sputum and blood cultures continue without growth - Continue nebulizer treatments PRN - Dr Mancia (Infectious Disease specialist) has consulted with this case 2. Sepsis due to pneumonia, acute, present on admission, Resolved - Initially severe sepsis - Febrile with tachycardia and tachypnea at arrival to the ER, remains febrile without acetaminophen use - Continue to treat his pneumonia. Antibiotics as above in #1. - IV fluids discontinued - Continue to monitor CBC 3. Transaminitis, mildly improved today - Unclear etiology, though Ceftriaxone use may be the etiology and this has been discontinued - RUQ US is negative for an acute etiology - Gastroenterology has been consulted - Monitor for further transaminase improvement 4. Hyponatremia, acute, present on admission, resolved - Likely secondary to sepsis, respiratory infection and inadequate oral intake. - Monitor 5. Acute Respiratory Failure with Hypoxemia, resolved - Secondary to Pneumonia - Supplemental oxygen to keep SpO2 > 92% - Breathing treatments PRN Bowel regimen PRN constipation Acetaminophen PRN fever, mild pain GI Prophylaxis: Not indicated VTE Prophylaxis: Sub-Q Enoxaparin, SCDs Resuscitation Status: CPR: Attempt Resuscitation Time spent 30 minutes Attending Statement I have seen and evaluated patient at bedside, in addition i have directly supervised care provided by resident physician. I agree with above documentation. Chari Vicente DO May 14, 2016 08:02 Nikolai Butler DO May 14, 2016 16:46
[2016-05-14] MEDS: levoFLOXacin 750 mg Tablet PO SCH (08:45)
[2016-05-14 11:32] VITALS: PULSE 100
[2016-05-14 12:43] VITALS: BP 121/82; PULSE 98; RESP 18; O2SAT 96
[2016-05-14 12:48] LABS: INR 1.06 ratio
--- NOTE | 2016-05-14 15:06 | PCM.PNMED ---
Subjective Date of Service May 14, 2016 Subjective Patient states he feels well and has no complaints at this time. He denies nausea, vomiting, diarrhea, abdominal pain, shortness of breath, coughing, wheezing, or malaise. Exam Vital Signs Vital Sign - Last Date Time Temp Pulse Resp B/P Pulse Ox O2 Delivery O2 Flow Rate FiO2 05/14/16 12:43 36.6 98 18 121/82 96 Room Air 05/11/16 04:36 1.00 Intake and Output 05/13/16 05/13/16 05/14/16 Cumulative From/Thru 15:00 23:00 07:00 05/09/16 16:44 - 05/14/16 04:30 Intake Total 925 ml 04246 ml Output Total 900 ml Balance 925 ml 87438 ml Intake Oral 925 ml 3181 ml IV Total 80255 ml Output Urine Total 900 ml # Voids 5 22 # Bowel Movements 1 6 Exam General: Alert, Oriented X3, Cooperative, No Acute Distress Eyes: PERRLA, EOMI. Anicteric sclerae. Mouth: Mouth Normal, Mucous Membranes Moist/[place] Chest & Lungs: Clear to auscultation bilaterally with no crackles, wheezes, or rhonchi. Cardiovascular: Regular Rate/Rhythm, Normal S1, Normal S2, No Murmurs/Rubs/ Gallops Abdomen: Non-tender, Non-distended, No masses, Normoactive bowel tones, Soft Musculoskeletal: Normal Range of Motion Extremities: No cyanosis/clubbing/edema bilaterally Neurological: Grossly Neurologically Intact, Normal Speech Lab and Diagnostics Result Diagram: 05/13/16 0600 05/14/16 0555 Microbiology Negative strep pneumoniae and legionella antigens Positive for Adenovirus on Biofire of nasopharyngeal swab Negative MRSA screen Assessment & Plan Marlo is a 20 year old previously healthy male who presented with 5 days of URI symptoms and fever, tested positive for adenovirus. Chest x-ray indicative of a right basilar pneumonia. He has been admitted for evaluation and treatment of a right lower lobe pneumonia. He was also noted to have elevated LFTs which continued to climb through his stay, for which Gastroenterology was consulted. Acute isolated transaminitis. - Pt initially presented with AST 120 and ALT normal at 40, with no abdominal pain. His LFTs have since both climbed into the 300s, and his AST is beginning to improve but ALT continues to rise. Bilirubin and alk phos have remained normal. His albumin has been low at baseline, which may indicate underlying liver disease but his INR was normal at 1.06. He denies alcohol use but this is alcoholic hepatitis is still a possibility; his AST was double his ALT during the first few days of his stay, but his ALT eventually caught up. RUQ US was negative for any acute process. Tox screen was negative, but was obtained 4 days in to the admission. Acute hepatitis serology was also negative. Atypical pneumonia such as Legionella and Mycoplasma, as well as Adenovirus can cause transient transaminitis. Furthermore, Ceftriaxone use is associated with transient transaminitis in some patients. Pt has also been receiving several doses of Tylenol; although this was likely too low of a dose to cause hepatic damage, it may have worsened an already-present elevation in LFTs. - Ceftriaxone discontinued. - Continue to monitor LFTs. - Discontinued Tylenol. - Ordered Tylenol levels - Ordered anti-smooth muscle antibodies and antimitochondrial antibodies - Ordered ceruloplasmin - Ordered Alpha-1 antitrypsin - Ordered iron study and ferritin GI Prophylaxis: Not indicated VTE Prophylaxis: Sub-Q Enoxaparin, SCDs Resuscitation Status: CPR: Attempt Resuscitation Hamzah Carpenter May 14, 2016 15:06
--- NOTE | 2016-05-14 16:48 | NUR ---
Labs Liver values show improvement this shift. APAP order d/c. IVF continue. Plan is to d/c tomorrow pending improvement in labs.
--- NOTE | 2016-05-14 18:41 | PROG NOTE ---
[address] [address] PROGRESS NOTE PATIENT: RIMA GILLETTE : 1995 MR#: [id number] ADMIT: 05/09/2016 JOB ID: [id number] DATE: 05/14/2016 REASON FOR FOLLOWUP: Adenovirus pneumonia complicated by bacterial superinfection. INTERVAL HISTORY: Recall that this is a young 20-year-old gentleman we saw who was admitted with pneumonia late last week. He was initially quite ill despite what was proven to be an adenovirus pneumonia. Because of elevated procalcitonin, we felt it likely that there was additional bacterial super infection in addition to the proven adenovirus pneumonia. Because of this, it was strongly recommended azithromycin and ceftriaxone be continued and the patient closely followed. Over the weekend, the patient tells us he is much improved. His respiratory symptoms have almost resolved in that he is no longer coughing or short of breath. He is eating a full diet without nausea, vomiting or diarrhea and has really no symptoms at all at this point. His discharge was held up over the weekend though because his liver function tests have been going up fairly precipitously and this has prompted an evaluation from GI. PHYSICAL EXAMINATION: Reveals a well-developed, well-nourished, gentleman in no acute distress. Temp 36.6, pulse 98, respiratory rate 18, blood pressure 121/81. He is saturating well on room air. He is in no acute distress at all. Eyes without conjunctivitis. No preauricular adenopathy. Throat normal. Lungs: A few crackles at the right base. Abdomen is soft and nontender. No hepatosplenomegaly. No palpable liver edge at all. no skin rash. LABORATORIES: Include a white blood count normal 5300, 50% lymphocytes which is consistent with his adenoviral pneumonia. His creatinine 0.51. His AST started at 120 and has now reached 329, so it has been steadily rising. His ALT started at 42 and has risen to 320 today. Alk phos has been normal. Bilirubin normal. Procalcitonin was 3.3 on the th and was 1.6 on the 28th. Urine tox screen negative. Urinalysis without pyuria. Acute hepatitis panel negative and HIV negative. Urine Legionella and pneumococcal antigens are negative. Respiratory virus PCR positive for adenovirus. MRSA screen was negative and blood cultures negative. An abdominal ultrasound was done because of concerns about his rising LFTs and it was basically normal. IMPRESSION: This is a young gentleman with adenovirus pneumonia which appears to have been complicated by bacterial super infection. He is now in his 5th day in the hospital and has basically returned to his normal state of health at this point. He has asymptomatic rise in liver function tests which has now reached about 300. Review of the pertinent literature including an article from [facility] from 2016 shows that hepatitis is very common in children with adenovirus, and I suspect that is what is going on here. Given the patient's total lack of toxicity, I think it is unlikely that this is going to pose any significant risk to his health going forward and could simply be checked as an outpatient. It is also possible his elevated LFTs are due to ceftriaxone but this would be quite an unusual and severe reaction. RECOMMENDATIONS: 1. I agree with a switch to levofloxacin and I would finish two more days which will take us through May 16 and then discontinue all antibiotics. 2. A repeat procalcitonin has been requested. 3. I see no reason not to discharge the patient today or at the latest tomorrow. He should have a repeat set of LFTs in 5-7 days to make sure they are going in the right direction. 4. Infectious Disease will go ahead and sign off at this time.
[2016-05-14 20:00] VITALS: PULSE 76
[2016-05-14 20:39] VITALS: BP 121/84; PULSE 69; RESP 16; O2SAT 99
[2016-05-15 00:35] VITALS: BP 121/78; PULSE 75; RESP 18; O2SAT 95
[2016-05-15] MEDS: 0.9% Sodium Chloride 1,000 ML IV SCH ×3 (02:06→17:20)
--- NOTE | 2016-05-15 03:20 | NUR ---
Uneventful night: Pt able to sleep off and on; states he sleeps in about 4-5 hours blocks of time throughout the day and night. Denies pain, cough, shortness of breath. Up independently in room.
[2016-05-15 05:00] VITALS: BP 127/87; PULSE 63; RESP 16; O2SAT 97
[2016-05-15 08:36] LABS: Unsaturated Iron Binding 109.8 ug/dL
[2016-05-15 08:44] VITALS: BP 128/85; PULSE 58; RESP 17; O2SAT 97
[2016-05-15 08:45] VITALS: PULSE 72; RESP 18; O2SAT 97
[2016-05-15] MEDS: levoFLOXacin 750 mg Tablet PO SCH (09:02)
[2016-05-15] MEDS ORDERED: LEVO750T9 PO (09:02)
--- NOTE | 2016-05-15 09:18 | PCM.DIMED ---
Chari Vicente DO 05/15/16 0902: Discharge Instructions Date of Service May 17, 2016 Dates of Hospitalization May 09, 2016 at 21:44 Discharge Diagnosis Discharge Diagnosis Community Acquired Pneumonia, RLL Sepsis due to pneumonia, acute, present on admission, Resolved Transaminitis, mildly improved -Suspect this may be due to adenovirus Hyponatremia, acute, present on admission, resolved Acute Respiratory Failure with Hypoxemia, resolved Medication Instructions You have completed a full course of antibiotics for your pneumonia and do not need to take any medications. Test Results PCR Positive for Adenovirus Chest xray with a right lower lobe pneumonia Elevated procalcitonin, has trended down. Diet No restrictions Activity No restrictions Call your provider Fever or Chills, Shortness of breath, Bleeding, Chest pain, Vomitting, Excessive diarrhea, Weakness (unilateral) Patient Instructions Follow-up plan You have been scheduled to have a follow up appointment with [facility] on 05/21 at 10:30am, please check in for your appointment 15 minutes prior to the appointment time. [facility] [address] [address] You will need to have your liver function checked at your follow up appointment. Follow-up Provider: [facility] Nikolai Butler DO 05/17/16 0730: Discharge Instructions Attending's Statement Read and agree Chari Vicente DO May 15, 2016 09:02 Nikolai Butler DO May 17, 2016 07:30
[2016-05-15] MEDS ORDERED: ACETYLCYSTEINE IV ONE ×3 (11:00→16:30)
[2016-05-15] MEDS ORDERED: DEXTROSE 5% IV ONE ×3 (11:00→16:30)
--- NOTE | 2016-05-15 11:17 | PCM.PNMED ---
Subjective Date of Service May 15, 2016 Subjective Patient is resting comfortably today, and has no complaints. He states he feels better today. He denies abdominal pain, nausea, vomiting, diarrhea, shortness of breath, coughing, wheezing, fevers, or chills. Exam Vital Signs Vital Sign - Last Date Time Temp Pulse Resp B/P Pulse Ox O2 Delivery O2 Flow Rate FiO2 05/15/16 08:45 72 18 97 Room Air 05/15/16 08:44 37.3 128/85 05/11/16 04:36 1.00 Intake and Output 05/14/16 05/14/16 05/15/16 Cumulative From/Thru 15:00 23:00 07:00 05/09/16 16:44 - 05/15/16 06:37 Intake Total 3647 ml 2028 ml 2649 ml 74765 ml Output Total 1000 ml 1900 ml Balance 2647 ml 2028 ml 2649 ml 30420 ml Intake Oral 300 ml 960 ml 650 ml 5091 ml IV Total 3347 ml 1068 ml 1999 ml 38334 ml Output Urine Total 1000 ml 1900 ml # Voids 3 3 5 33 # Bowel Movements 2 0 8 Exam General: Alert, Oriented X3, Cooperative, No Acute Distress Eyes: PERRLA, EOMI. Anicteric sclerae. Mouth: Mouth Normal, Mucous Membranes Moist/[place] Chest & Lungs: Clear to auscultation bilaterally with no crackles, wheezes, or rhonchi. Cardiovascular: Regular Rate/Rhythm, Normal S1, Normal S2, No Murmurs/Rubs/ Gallops Abdomen: Non-tender, Non-distended, No masses, Normoactive bowel tones, Soft Musculoskeletal: Normal Range of Motion Extremities: No cyanosis/clubbing/edema bilaterally Neurological: Grossly Neurologically Intact, Normal Speech Lab and Diagnostics Result Diagram: 05/13/16 0600 05/15/16 0645 Microbiology Negative strep pneumoniae and legionella antigens Positive for Adenovirus on Biofire of nasopharyngeal swab Negative MRSA screen Assessment & Plan Marlo is a 20 year old previously healthy male who presented with 5 days of URI symptoms and fever, tested positive for adenovirus. Chest x-ray indicative of a right basilar pneumonia. He has been admitted for evaluation and treatment of a right lower lobe pneumonia. He was also noted to have elevated LFTs which continued to climb through his stay, for which Gastroenterology was consulted. Acute isolated transaminitis. - Pt initially presented with mildly elevated LFTs which continued to climb. Bilirubin and alk phos have remained normal. He denies alcohol use, excessive Tylenol use, or suicidal tendencies. RUQ US was negative for any acute process. Tox screen was negative, but was obtained 4 days in to the admission. Acute hepatitis serology was also negative. Atypical pneumonia such as Legionella and Mycoplasma, as well as Adenovirus can cause transient transaminitis. Furthermore , Ceftriaxone use is associated with transient transaminitis in some patients. Autoimmune hepatitis is also a consideration. Pt has also been receiving several doses of Tylenol; although this was likely too low of a dose to cause hepatic damage, it may have worsened an already-present elevation in LFTs. Strangely, his Tylenol level was still positive 4 days after his last dose. Furthermore, his ferritin was elevated at 1370, which may indicate iron overload , unusual for someone his age. Though elevated ferritin may be an acute phase reactant, his ferritin was higher than expected for that. He will need further workup for hemochromatosis. Recommend continuing to monitor his LFTs; he may require a liver biopsy in the next 2 days if his LFTs continue to trend upwards. - Ceftriaxone discontinued. - Continue to monitor LFTs. - Discontinued Tylenol. - Ordered hemochromatosis genetic screen - N-Acetylcysteine ordered - Ordered anti-smooth muscle antibodies and antimitochondrial antibodies - Ordered ceruloplasmin - Ordered Alpha-1 antitrypsin GI Prophylaxis: Not indicated VTE Prophylaxis: Sub-Q Enoxaparin, SCDs Resuscitation Status: CPR: Attempt Resuscitation Hamzah Carpenter May 15, 2016 10:32
[2016-05-15 13:15] VITALS: BP 139/86; PULSE 82; RESP 20; O2SAT 94
--- NOTE | 2016-05-15 14:55 | PCM.PNMED ---
Subjective Date of Service May 15, 2016 Subjective Marlo states that he is feeling fine, a bit more tired than usual, but is otherwise feeling well. Exam Vital Signs Vital Sign - Last Date Time Temp Pulse Resp B/P Pulse Ox O2 Delivery O2 Flow Rate FiO2 05/15/16 13:15 36.6 82 20 139/86 94 Room Air 05/11/16 04:36 1.00 Intake and Output 05/14/16 05/14/16 05/15/16 Cumulative From/Thru 15:00 23:00 07:00 05/09/16 16:44 - 05/15/16 06:37 Intake Total 3647 ml 2028 ml 2649 ml 36564 ml Output Total 1000 ml 1900 ml Balance 2647 ml 2028 ml 2649 ml 77111 ml Intake Oral 300 ml 960 ml 650 ml 5091 ml IV Total 3347 ml 1068 ml 1999 ml 70976 ml Output Urine Total 1000 ml 1900 ml # Voids 3 3 5 33 # Bowel Movements 2 0 8 Exam General: Sitting up in bed upon my entering the room, comfortable appearing. No acute distress. Awake, alert, and oriented. HEENT: Mucus membranes moist. Sclera anicteric Cardiac: RRR. No murmur, rubs, or gallops Lungs: Good inspiratory effort. No wheezes, rales, or rhonchi. No conversational dyspnea, tripoding, or gasping. Abdomen: Normoactive bowel tones. Soft, nondistended and nontender. No discernible hepatomegaly. Extremities: No clubbing, cyanosis or edema bilaterally. Skin: Normal turgor without obvious rash. No telangiectasias Lab and Diagnostics Result Diagram: 05/13/16 0600 05/15/16 0645 Microbiology Negative strep pneumoniae and legionella antigens Positive for Adenovirus on Biofire of nasopharyngeal swab Negative MRSA screen Assessment & Plan Marlo is a 20yo previously healthy male who presented with 5 days of worsening fever, productive cough, dyspnea, chest pain, myalgias, and fatigue. Chest x- ray at admission is indicative of a right basilar pneumonia. He has been admitted for evaluation and treatment of a right lower lobe pneumonia. 1. Transaminitis with worsening ALT - Unclear etiology,Ceftriaxone use may be the etiology though this was discontinued and his ALT continued to rise. Per Dr Mancia's note, it is also possible that he has had transaminitis due to adenovirus infection. - RUQ US without abnormal findings - Gastroenterology providing expertise and would like the patient to stay in the hospital for further monitoring with potential need for liver biopsy if this worsens or fails to improve - Monitor 2. Community Acquired Pneumonia, RLL, present on admission - Adenovirus with suspected secondary bacterial pneumonia - Viral PCR positive for adenovirus - Procalcitonin of 3.08 on 05/11/16 and 1.67 on 05/12/16 and now 0.28 are suggestive of improving bacterial pneumonia - Ceftriaxone has been discontinued due to possible contribution to #1 above - Levofloxacin 750 mg PO daily through tomorrow morning - Sputum and blood cultures without growth - Continue nebulizer treatments PRN - Dr Mancia (Infectious Disease specialist) has consulted with this case 3. Sepsis due to pneumonia, acute, present on admission, Resolved - Initially severe sepsis - Febrile with tachycardia and tachypnea at arrival to the ER, remains febrile without acetaminophen use - Continue to treat his pneumonia. Antibiotics as above in #1. - IV fluids discontinued - Continue to monitor CBC 4. Hyponatremia, acute, present on admission, resolved - Likely secondary to sepsis, respiratory infection and inadequate oral intake. - Monitor 5. Acute Respiratory Failure with Hypoxemia, resolved - Secondary to Pneumonia - Supplemental oxygen to keep SpO2 > 92% - Breathing treatments PRN Bowel regimen PRN constipation Acetaminophen PRN fever, mild pain GI Prophylaxis: Not indicated VTE Prophylaxis: Sub-Q Enoxaparin, SCDs Resuscitation Status: CPR: Attempt Resuscitation Time spent 30 minutes Attending Statement I have seen and evaluated patient in addition to directly supervising care provided by resident. I agree with above documentation. Chari Vicente DO May 15, 2016 14:55 Nikolai Butler DO May 16, 2016 07:39
--- NOTE | 2016-05-15 16:09 | NUR ---
Social work-continued d/c planning: Data:EMR Reviewed. Pt is on day 6 of hospitalization for sepsis per H&P. Pt may be ready to discharge later today or tomorrow. states pt will need follow up appointment for lab in one week. [facility] has seen pt and pt does not qualify for insurance. SW called [facility] and the earliest they could get pt in was . SW called residency clinic and they were able to get pt an appointment on Sunday 05/21 at 1030. Pt will have to pay flat fee of $175 and then will be billed for the rest. SW followed up with pt at bedside, he is agreeable to pay fee. SW provided him with PCP information and appointment time. No other discharge needs identified. SW will continue to follow. Assessment:Pt who is independent at baseline. Plan:Pt to discharge home when medically stable via POV. Appointment scheduled at [facility] for 05/21 at 1030. Pt agreeable pay cost. No other discharge needs identified. SW will continue to follow. BESSIE Singh
--- NOTE | 2016-05-15 18:24 | NUR ---
Activity Patient reporting feeling much better now. Continues to nap/sleep quite a lot. Appetite good. Independent to bathroom. Addendum: 05/15/16 at 1826 by BRIAN BLACKMAN RN Lungs clear to auscultation.
[2016-05-15 21:28] VITALS: BP 121/83; PULSE 82; RESP 16; O2SAT 96
[2016-05-16 05:52] VITALS: BP 102/69; PULSE 87; RESP 16; O2SAT 96
[2016-05-16] MEDS: 0.9% Sodium Chloride 1,000 ML IV SCH ×3 (06:01→20:00)
[2016-05-16] MEDS: levoFLOXacin 750 mg Tablet PO SCH (09:33)
--- NOTE | 2016-05-16 10:44 | PCM.PNMED ---
Subjective Date of Service May 16, 2016 Subjective Patient states he feels well today. No complaints at this time. Slept well and appetite is good. Exam Vital Signs Vital Sign - Last Date Time Temp Pulse Resp B/P Pulse Ox O2 Delivery O2 Flow Rate FiO2 05/16/16 05:52 36.8 87 16 102/69 96 Room Air 05/11/16 04:36 1.00 Intake and Output 05/15/16 05/15/16 05/16/16 Cumulative From/Thru 15:00 23:00 07:00 05/09/16 16:44 - 05/16/16 06:01 Intake Total 2409 ml 1918 ml 67401 ml Output Total 550 ml 2450 ml Balance 1859 ml 1918 ml 79486 ml Intake Oral 718 ml 200 ml 6009 ml IV Total 1691 ml 1718 ml 72396 ml Output Urine Total 550 ml 2450 ml # Voids 5 4 42 # Bowel Movements 8 Exam General: Alert, Oriented X3, Cooperative, No Acute Distress Eyes: PERRLA, EOMI. Anicteric sclerae. Mouth: Mouth Normal, Mucous Membranes Moist/[place] Chest & Lungs: Clear to auscultation bilaterally with no crackles, wheezes, or rhonchi. Cardiovascular: Regular Rate/Rhythm, Normal S1, Normal S2, No Murmurs/Rubs/ Gallops Abdomen: Non-tender, Non-distended, No masses, Normoactive bowel tones, Soft Musculoskeletal: Normal Range of Motion Extremities: No cyanosis/clubbing/edema bilaterally Neurological: Grossly Neurologically Intact, Normal Speech Lab and Diagnostics Result Diagram: 05/13/16 0600 05/16/16 0519 Microbiology Negative strep pneumoniae and legionella antigens Positive for Adenovirus on Biofire of nasopharyngeal swab Negative MRSA screen Assessment & Plan Marlo is a 20 year old previously healthy male who presented with 5 days of URI symptoms and fever, tested positive for adenovirus. Chest x-ray indicative of a right basilar pneumonia. He has been admitted for evaluation and treatment of a right lower lobe pneumonia. He was also noted to have elevated LFTs which continued to climb through his stay, for which Gastroenterology was consulted. Acute isolated transaminitis. - Pt initially presented with mildly elevated LFTs which continued to climb. Bilirubin and alk phos have remained normal. He denies alcohol use, excessive Tylenol use, or suicidal tendencies. RUQ US was negative for any acute process. Tox screen was negative, but was obtained 4 days in to the admission. Acute hepatitis serology was also negative. Atypical pneumonia such as Legionella and Mycoplasma, as well as Adenovirus can cause transient transaminitis. Furthermore , Ceftriaxone use is associated with transient transaminitis in some patients. Autoimmune hepatitis is also a consideration. His ferritin was elevated at 1370. Elevated ferritin may be an acute phase reactant, but he will need further workup for hemochromatosis. Pt has also been receiving several doses of Tylenol; although this was likely too low of a dose to cause hepatic damage, it may have worsened an already-present elevation in LFTs. Strangely, his Tylenol level was still positive 4 days after his last dose, so N-acetylcysteine was ordered. LFTs are now beginning to improve, so N-acetylcysteine may have helped in stabilizing the hepatocytes. - If his LFTs continue to improve, he will be appropriate for discharge from a GI standpoint by tomorrow. - Recommend follow-up LFTs next Saturday - Recommend follow up visit with Dr. Goins in 2 weeks following discharge - Discontinued Tylenol and Ceftriaxone - Continue to monitor LFTs. - N-Acetylcysteine given. - Anti-smooth muscle antibodies, antimitochondrial antibodies, ceruloplasmin, alpha-1 antitrypsin, hemochromatosis genetic screen pending GI Prophylaxis: Not indicated VTE Prophylaxis: Sub-Q Enoxaparin, SCDs Resuscitation Status: CPR: Attempt Resuscitation Hamzah Carpenter May 16, 2016 10:44
[2016-05-16 12:44] VITALS: BP 108/73; PULSE 100; RESP 18; O2SAT 96
--- NOTE | 2016-05-16 16:26 | PCM.PNMED ---
Subjective Date of Service May 16, 2016 Subjective Marlo is feeling well today and is completing the final dose of his levofloxacin course. Exam Vital Signs Vital Sign - Last Date Time Temp Pulse Resp B/P Pulse Ox O2 Delivery O2 Flow Rate FiO2 05/16/16 12:44 36.8 100 18 108/73 96 Room Air 05/11/16 04:36 1.00 Intake and Output 05/15/16 05/15/16 05/16/16 Cumulative From/Thru 15:00 23:00 07:00 05/09/16 16:44 - 05/16/16 06:01 Intake Total 2409 ml 1918 ml 24598 ml Output Total 550 ml 2450 ml Balance 1859 ml 1918 ml 45476 ml Intake Oral 718 ml 200 ml 6009 ml IV Total 1691 ml 1718 ml 55809 ml Output Urine Total 550 ml 2450 ml # Voids 5 4 42 # Bowel Movements 8 Exam General: Sitting up in bed upon my entering the room, comfortable appearing. No acute distress. Awake, alert, and oriented. Moves within the room with ease. HEENT: Mucus membranes moist. Sclera anicteric Cardiac: RRR. No murmur, rubs, or gallops Lungs: Good inspiratory effort. No wheezes, rales, or rhonchi. No conversational dyspnea, tripoding, or gasping. Abdomen: Normoactive bowel tones. Soft, nondistended and nontender. No discernible hepatomegaly. Extremities: No clubbing, cyanosis or edema bilaterally. Skin: Normal turgor without obvious rash. No telangiectasias IVs and Medications Medications Reviewed: Medications were reviewed in detail Lab and Diagnostics Result Diagram: 05/13/16 0600 05/16/16 0519 Microbiology Negative strep pneumoniae and legionella antigens Positive for Adenovirus on Biofire of nasopharyngeal swab Negative MRSA screen Assessment & Plan Marlo is a 20yo previously healthy male who presented with 5 days of worsening fever, productive cough, dyspnea, chest pain, myalgias, and fatigue. Chest x- ray at admission is indicative of a right basilar pneumonia. He has been admitted for evaluation and treatment of a right lower lobe pneumonia. Unfortunately, his transaminase levels have elevated warranting further evaluation. 1. Transaminitis, now improving - Unclear etiology,Ceftriaxone use may be the etiology though this was discontinued and his ALT continued to rise. Per Dr Mancia's note, adenovirus infection may cause transaminitis. - RUQ US without abnormal findings - Gastroenterology providing expertise and would like the patient to stay in the hospital for further monitoring until tomorrow - Monitor 2. Community Acquired Pneumonia, RLL, present on admission, treated - Adenovirus with suspected secondary bacterial pneumonia - Viral PCR positive for adenovirus - Procalcitonin of 3.08 on 05/11/16 and 1.67 on 05/12/16 and now 0.28 are suggestive of bacterial pneumonia - Ceftriaxone discontinued due to possible contribution to #1 above - Levofloxacin 750 mg PO daily was given through this morning to complete his ABX course - Sputum and blood cultures without growth - Dr Mancia (Infectious Disease specialist) has consulted with this case 3. Sepsis due to pneumonia, acute, present on admission, Resolved - Initially severe sepsis - Febrile with tachycardia and tachypnea at arrival to the ER - IV fluids discontinued 4. Hyponatremia, acute, present on admission, resolved - Likely secondary to sepsis, respiratory infection and inadequate oral intake. - Monitor 5. Acute Respiratory Failure with Hypoxemia, resolved Bowel regimen PRN constipation Acetaminophen PRN fever, mild pain GI Prophylaxis: Not indicated VTE Prophylaxis: Sub-Q Enoxaparin, SCDs Resuscitation Status: CPR: Attempt Resuscitation Time spent 30 minutes Attending Statement I have seen and evaluated patient at bedside, in addition to directly supervising care provided by resident physician. I agree with above documentation. Chari Vicente DO May 16, 2016 16:01 Nikolai Butler DO May 17, 2016 07:45
--- NOTE | 2016-05-16 19:14 | NUR ---
Activity Patient reporting he is feeling, "almost back to normal". Denies chest discomfort, cough, shortness of breath or pain. Patient ambulating independent in room. Oral intake good.
[2016-05-16 20:50] VITALS: BP 109/79; PULSE 97; RESP 16; O2SAT 95
[2016-05-17] MEDS: 0.9% Sodium Chloride 1,000 ML IV SCH ×2 (01:34→09:20)
--- NOTE | 2016-05-17 04:23 | NUR ---
Uneventful night Patient denies pain/discomfort. independent in room. no IV access. vitals stable. occasional cough non-productive. patient awake most of the night on his phone. denies any needs. will continue to monitor.
[2016-05-17 05:25] VITALS: BP 106/68; PULSE 95; RESP 16; O2SAT 97
[2016-05-17 09:00] VITALS: BP 112/74; PULSE 98; RESP 19; O2SAT 95
--- NOTE | 2016-05-17 09:23 | NUR ---
Social Work: Discharge Data: Pt is on day 8 of hospitalization. EMR reviewed. D/C orders are in. No d/c planning needs at this time. FILTERER will continue to follow if needs arise. Assessment: Pt who is independent at baseline. Plan: Pt will d/c home today via POV. No d/c planning needs at this time. FILTERER will continue to follow if needs arise. BESSIE Marcelino
--- NOTE | 2016-05-17 11:06 | PCM.DC.MED ---
Discharge Summary Date of Service May 17, 2016 Dates of Hospitalization Date of Hospital Admission May 09, 2016 at 21:44 Date of Discharge: May 17, 2016 Providers: Admitting Physician: Jack Joaquin MD Primary Care Physician: Nopconcepcion Attending Physician: Jack Joaquin MD Diagnosis at Time of Discharge Diagnosis at Time of Discharge Community Acquired Pneumonia, RLL Sepsis due to pneumonia, acute, present on admission, Resolved Transaminitis, mildly improved -Suspect this may be due to adenovirus Hyponatremia, acute, present on admission, resolved Acute Respiratory Failure with Hypoxemia, resolved Procedures XRay, CTs & MRIs Chest xray 05/09/16: FINDINGS: Surgical changes and devices: None. Lungs and pleura: No pleural effusions or pneumothorax. Dense right basilar pneumonia Mediastinum: Mediastinal contours are normal. Heart size is normal. Bones and chest wall: No suspicious bony abnormalities. Soft tissues appear unremarkable. IMPRESSION: Dense right basilar pneumonia Dictated by: Riley Luna M.D. on 05/09/2016 at 20:14 Other Diagnostics Abdominal Ultrasound 05/12/16: FINDINGS: Liver: Liver is normal in size and homogeneous in echotexture. Gallbladder: Is within normal limits Biliary ducts: Intrahepatic bile ducts are non-dilated. Extrahepatic bile duct caliber measures 3.9 mm. Normal is 6-7 mm or less in diameter, or 10 mm or less post-cholecystectomy. Pancreas: Visualized portions of the pancreas are sonographically normal. Spleen: Spleen is normal in size and homogeneous in echotexture. Kidneys: Kidneys are normal in size and echotexture. Right kidney measures 10.7 cm long; left kidney measures 11.1 cm long. No hydronephrosis or nephrolithiasis. No solid masses. Aorta: Visualized aorta is normal in caliber at less than 3 cm. Iliacs: Not well-seen. IVC: Intrahepatic inferior vena cava is patent. Miscellaneous: No free abdominal fluid. Small bilateral pleural effusions. IMPRESSION: 1. No acute process. 2. Small bilateral pleural effusions. Dictated by: Max Montanez M.D. on 05/13/2016 at 8:30 Brief History Per H&P by Dr Feldman: Patient is a 20 year old male with no past medical history. He presented to [facility] on 05/09/16 with his father and his brother. History taken from the family as patient is quite somnolent. Symptoms reported include fever, cough, sputum production, chest pain, shortness of breath, sore throat, myalgias, laryngitis and fatigue. No one else at home has been sick. The patient has been able to eat and drink some. He has been especially good about drinking tea as it was soothing to his throat. In the ED patient temp 40.4, heart rate 130, respiratory rate 24, blood pressure 127/75, and O2 saturation 94% on room air. Labs remarkable for sodium 120, potassium 3.1, chloride 82. IV fluids started. IV antibiotics given. Patient to be admitted for further management of what appears to be sepsis with community acquired pneumonia. Hospital Course Marlo is a 20yo previously healthy male who presented with 5 days of worsening fever, productive cough, dyspnea, chest pain, myalgias, and fatigue. Chest x- ray at admission is indicative of a right basilar pneumonia. He has been admitted for evaluation and treatment of a right lower lobe pneumonia. Unfortunately, his transaminase levels have elevated warranting further evaluation. The following were addressed during this hospitalization: 1. Transaminitis, present on admission, improved - AST and ALT worsened before improving in the last 48hours of hospitalization - Unclear etiology,Ceftriaxone use may be the etiology though this was discontinued and his ALT continued to rise. Per Dr Mancia's note, adenovirus infection may cause transaminitis which may also have been the cause for this. - RUQ US was without abnormal findings - Gastroenterology provided expertise recommended monitoring for improvement which occurred over the last 2 days of the hospitalization - Labs to evaluate for potential hemochromatosis are pending at the time of discharge - He has been instructed to follow up with Dr Goins (gastroenterology) in 1-2 weeks and to have LFTs done in 1 week. 2. Community Acquired Pneumonia, RLL, present on admission, treated - Adenovirus with suspected secondary bacterial pneumonia - Viral PCR positive for adenovirus - Procalcitonin of 3.08 on 05/11/16 and 1.67 on 05/12/16 and declined to 0.28 are suggestive of bacterial pneumonia - Ceftriaxone discontinued after 3 days due to possible contribution to #1 above - Levofloxacin 750 mg PO daily was given for 5 days to complete his ABX course - Sputum and blood cultures without growth - Dr Mancia (Infectious Disease specialist) provided expertise and guidance with antibiotic therapy - Acetaminophen given PRN fever, mild pain 3. Sepsis due to pneumonia, acute, present on admission, Resolved - Initially severe sepsis with a temperature of 40.4 on arrival with tachycardia and tachypnea - Febrile throughout the first 3 days of the hospitalization except when suppressed with acetaminophen - Given LR for the first 24hours then transitioned to NS for aggressive fluid resuscitation 4. Hyponatremia, acute, present on admission, resolved - Likely secondary to sepsis, respiratory infection and inadequate oral intake. 5. Acute Respiratory Failure with Hypoxemia, resolved - He initially required supplemental oxygen via mask, did not require this after the first 12 hours Exam Vital Signs (Last) Date Time Temp Pulse Resp B/P Pulse Ox O2 Delivery O2 Flow Rate FiO2 05/17/16 09:00 36.6 98 19 112/74 95 Room Air 05/11/16 04:36 1.00 Test 05/09/16 19:20 05/09/16 21:47 05/10/16 00:45 05/10/16 05:40 Hold Anguiano Top Tube Received (Received) Urine Legionella pneumophilia Ag Negative (Negative) Urine Color Yellow (YELLOW) Urine Appearance Clear (CLEAR,HAZY) Urine pH 6.0 (5.0-8.0) Urine Specific [place] 1.010 (1.003-1.035) Urine Protein Negativemg/dL (NEG,TRACE) Urine Glucose (UA) Negativemg/dL (NEGATIVE) Urine Ketones Negativemg/dL (NEGATIVE) Urine Occult Blood Moderate (NEGATIVE) Urine Nitrite Negative (NEGATIVE) Urine Bilirubin Negative (NEGATIVE) Urine Urobilinogen Normalmg/dL (NORMAL) Urine Leukocyte Esterase Negative (NEGATIVE) Urine RBC 0-2/hpf (0-2) Urine WBC 6-10/hpf (0-5) Urine Epithelial Cells Occasional/hpf (NONE-MOD) Urine Crystals None seen (NONE SEEN) Urine Bacteria None/hpf (NONE-FEW) Urine Hyaline Casts None/lpf (NONE) Urine Granular Casts None seen (NONE SEEN) Urine Waxy Casts None seen (NONE SEEN) Urine Red Blood Cell Casts None seen (NONE SEEN) Urine White Blood Cell Casts None seen (NONE SEEN) Urine Mucus None seen (None Seen) Urine Trichomonas None seen (NONE SEEN) Urine Yeast None (NONE SEEN) Urinalysis Comment Lactic Acid Level 1.0mmol/L (0.4-2.0) Phosphorus Level 2.4mg/dL (2.5-4.9) Magnesium Level 2.2mg/dL (1.6-2.6) Test 05/10/16 09:38 05/13/16 06:00 05/13/16 18:34 05/14/16 05:55 Hepatitis C RNA Qualitative (PCR) Negative (Negative) HIV (1&2) Ag and Ab, 4th Generation Non reactive (Non Reactive) White Blood Count 5.3th/mm3 (3.8-10.1) Red Blood Count 4.80mil/mm3 (4.40-5.80) Hemoglobin 14.3g/dL (13.8-17.2) Hematocrit 41.0% (41.0-50.0) Mean Corpuscular Volume 85.4fL (81-100) Mean Corpuscular Hemoglobin 29.8pg (27.0-35.0) Mean Corpuscular Hemoglobin Concent 34.9% (32.0-37.0) Red Cell Distribution Width 12.9% (12.3-15.4) Platelet Count 328bil/L (150-400) Neutrophils (%) (Auto) 36.7% (40-74) Lymphocytes (%) (Auto) 49.9% (14-46) Monocytes (%) (Auto) 8.8% (4-12) Eosinophils (%) (Auto) 1.7% (0-5) Basophils (%) (Auto) 2.1% (0-3) Hepatitis A IgM Antibody Negative (Negative) Hepatitis B Surface Antigen Negative (Negative) Hepatitis B Core IgM Antibody Negative (Negative) Hepatitis C Antibody <0.1s/co ratio (0.0-0.9) Hepatitis C Comment Comment (.) Urine Opiates Screen Negative Urine Methadone Screen Negative Urine Barbiturates Screen Negative Urine Amphetamines Screen Negative Urine Benzodiazepines Screen Negative Urine Cocaine Metabolite Screen Negative Urine Cannabinoids Screen Negative Procalcitonin 0.28ng/mL (See Comment) Test 05/14/16 12:25 05/15/16 06:45 05/15/16 10:10 05/17/16 05:21 Prothrombin Time 11.4sec (8.1-12.5) Prothromb Time International Ratio 1.06ratio Iron Level 133ug/dL (35-150) Total Iron Binding Capacity 243ug/dL (250-450) Percent Iron Saturation 55%sat (15-50) Unsaturated Iron Binding 109.8ug/dL Ferritin 1370ng/mL (30-400) Ceruloplasmin 27.3mg/dL (16.0-31.0) Acetaminophen Level 15.0ug/mL Rx (10-25) Sodium Level 137mEq/L (134-144) Potassium Level 4.9mEq/L (3.5-5.2) Chloride Level 99mEq/L (97-108) Carbon Dioxide Level 26mmol/L (18-29) Blood Urea Nitrogen 14mg/dL (6-20) Creatinine 0.63mg/dL (0.76-1.27) Estimat Glomerular Filtration Rate 169mL/min (>59) Glucose Level 106mg/dL (60-99) Calcium Level 9.6mg/dL (8.5-10.1) Total Bilirubin 0.5mg/dL (0.0-1.2) Aspartate Amino Transf (AST/SGOT) 78U/L (0-50) Alanine Aminotransferase (ALT/SGPT) 269U/L (0-44) Alkaline Phosphatase 82U/L (25-150) Total Protein 7.2g/dL (6.4-8.4) Albumin 3.6g/dL (3.4-5.0) Microbiology Results Negative strep pneumoniae and legionella antigens Positive for Adenovirus on Biofire of nasopharyngeal swab Negative MRSA screen Discharge Medications No Active Prescriptions or Reported Meds Additional med instructions You have completed a full course of antibiotics for your pneumonia and do not need to take any medications. Followup Plan Disposition: Home with primary care follow up and outpatient follow up with gastroenterology Follow-up plan You have been scheduled to have a follow up appointment with [facility] on 05/21 at 10:30am, please check in for your appointment 15 minutes prior to the appointment time. [facility] [address] [place] [id number] You will need to have your liver function checked at your follow up appointment. Discharge Diet: No restrictions Discharge Activity: No restrictions Follow-up Provider: [facility] Time spent 40 minutes Attending Statement I have seen and evaluated patient at bedside in addition to directly supervising care provided by resident physician. I agree with above documentation. Chari Vicente DO May 17, 2016 10:39 Nikolai Butler DO May 18, 2016 07:55
[2016-05-17 12:52] VITALS: BP 121/69; PULSE 81; RESP 18; O2SAT 98
--- NOTE | 2016-05-17 16:46 | NUR ---
Discharge Pt d/c at 1345 home with both parents. pt denied pain. NO iv in place to be d/c. Discharge info discussed with parents present. VSS. All personal belongings left with pt.
== END 2016-05-17 13:59 | disposition home or self-care (01) | DRG 871 ==
LOC: SED 16:30 → MPC 21:44
PROVIDERS: ADMIT Hospitalist; ATTEND Hospitalist
DX: A41.9 Sepsis, unspecified organism (principal); J96.01 Acute respiratory failure with hypoxia; J15.8 Pneumonia due to other specified bacteria; J12.0 Adenoviral pneumonia; E87.1 Hypo-osmolality and hyponatremia; R65.20 Severe sepsis without septic shock; E87.6 Hypokalemia; R74.0 Nonspecific elevation of levels of transaminase and lactic acid dehydrogenase [LDH]; I10 Essential (primary) hypertension